=== PATIENT | male | born 1985 | race African-American/Black ===

== ENCOUNTER 2017-02-09 17:10 | Emergency (ER) | payer OTHER ==
[~2017-02-09] VITALS: Ht 175.3 cm; Wt 81.2 kg
[2017-02-09 17:27] VITALS: BP 144/84
--- NOTE | 2017-02-09 17:56 | Emergency Room Report ---
History of Present Illness General Chief Complaint: Pain Source: Patient Present Illness HPI 31-year-old male presents to the emergency department complaining of 8/10 in severity right sided groin pain x3 days. Patient denies testicular pain or swelling he denies penile discharge or external lesions he denies swollen tender lymph nodes, joint pain, fevers chills or abdominal pain. Patient states that he was drinking heavily for 3 years and does not recall if he possibly lifted anything heavy. Patient denies bruising, erythema. He reports pain as dullness does not radiate. Denies dysuria, hematuria, urinary frequency or rashes. He states he has had unprotected intercourse and wants to be covered for STD. Denies CP, Palpitations, LOC, AMS, dizziness, Changes in Vision , Sensation, paresthesias, or a sudden severe headache. Allergies: Coded Allergies: No Known Allergies (Unverified , 02/09/17) Patient History Past Medical History: see triage record Past Surgical History: none Pertinent Family History: none Reviewed Nursing Documentation: PMH: Agreed, PSxH: Agreed Nursing Documentation-PMH Past Medical History: No Stated History Review of Systems All Other Systems: negative except mentioned in HPI Physical Exam Vital Signs Date Time Temp Pulse Resp B/P (MAP) Pulse Ox O2 Delivery O2 Flow Rate FiO2 02/09/17 17:17 98.2 83 20 144/84 99 Sp02 EP Interpretation: reviewed, normal General Appearance: no apparent distress, alert, GCS 15, non-toxic Head: normocephalic, atraumatic Eyes: bilateral eye normal inspection, bilateral eye PERRL ENT: hearing grossly normal, normal voice Neck: full range of motion Respiratory: lungs clear, normal breath sounds, speaking full sentences Cardiovascular #1: regular rate, rhythm Gastrointestinal: non tender, soft Rectal: deferred Genitourinary: penis normal, scrotum normal Musculoskeletal: back normal, gait/station normal, normal range of motion, no calf tenderness, tender - TTP to the bilateral groin muscles. Neurologic: alert, oriented x3, responsive, motor strength/tone normal, sensory intact, normal gait, speech normal Skin: normal color, no rash, warm/dry, well hydrated Lymphatic: no adenopathy Medical Decision Making PA Attestation Dr. Steel is my supervising Physician whom patient management has been discussed with. Diagnostic Impression: Primary Impression: Bilateral groin pain Additional Impression: Contact with or exposure to venereal diseases ER Course 31-year-old male presents to the emergency department complaining of 8/10 in severity right sided groin pain x3 days. Patient denies testicular pain or swelling he denies penile discharge or external lesions he denies swollen tender lymph nodes, joint pain, fevers chills or abdominal pain. Patient states that he was drinking heavily for 3 years and does not recall if he possibly lifted anything heavy. Patient denies bruising, erythema. He reports pain as dullness does not radiate. Denies dysuria, hematuria, urinary frequency or rashes. He states he has had unprotected intercourse and wants to be covered for STD. Denies CP, Palpitations, LOC, AMS, dizziness, Changes in Vision , Sensation, paresthesias, or a sudden severe headache. Ddx considered but are not limited to Muscle strain, saddle injury, STI , regular torsion, epididymitis just to name a few Vital signs: are WNL, pt. is afebrile H&PE are most consistent with Muscle strain of the bilateral groin muscles. No evidence of acute infection pt sitter for examination was lead radiologic technologist Won. No penile discharge or lymphadenopathy. No evidence of testicular tenderness, swelling and cremasteric reflexes intact bilaterally. ORDERS: none required at this time, the diagnosis is clinical ED INTERVENTIONS: -Rocephin 250 mg IM. DISCHARGE: At this time pt. is stable for d/c to home. Will provide printed patient care instructions, and any necessary prescriptions. Care plan and follow up instructions have been discussed with the patient prior to discharge. Last Vital Signs Date Time Temp Pulse Resp B/P (MAP) Pulse Ox O2 Delivery O2 Flow Rate FiO2 02/09/17 17:17 98.2 83 20 144/84 99 Disposition: HOME, SELF-CARE Condition: Stable Scripts Ibuprofen* (MOTRIN*) 600 Mg Tablet 600 MG ORAL THREE TIMES A DAY, #30 TAB 0 Refills Prov: Edna Moore P.A. 02/09/17 Doxycycline Hyclate* (VIBRAMYCIN*) 100 Mg Capsule 100 MG ORAL EVERY 12 HOURS for 7 Days, #14 CAP 0 Refills Prov: Edna Moore P.A. 02/09/17 Patient Instructions: Groin Strain Additional Instructions: Take medications as directed. Follow up with a Primary Care Provider in 3-5 days, even if your symptoms have resolved. --Please review list of primary care clinics, if you do not already have a primary care provider Return sooner to ED if new symptoms occur, or current symptoms become worse. - Please note that this Emergency Department Report was dictated using [employer] field [employer] software, occasionally this can lead to erroneous entry secondary to interpretation by the dictation equipment. Edna Moore Feb 09, 2017 17:56
[2017-02-09] MEDS ORDERED: VIBRAMYCIN100 MG ORAL (17:59)
[2017-02-09] MEDS ORDERED: IBUPROFEN600 MG ORAL (17:59)
[2017-02-09] MEDS ORDERED: Lidocaine 1% MPF 10mg/ml 5ml INJ ONE (18:00)
[2017-02-09 18:20] VITALS: BP 140/80
== END 2017-02-09 18:20 | disposition home or self-care (01) ==
LOC: EMR 17:53
DX: R10.30 Lower abdominal pain, unspecified (principal); Z20.2 Contact with and (suspected) exposure to infections with a predominantly sexual mode of transmission
CPT/HCPCS: 96372; 99284; J0696

== ENCOUNTER 2019-12-08 01:10 | Emergency (ER) | payer BC, OTHER ==
[~2019-12-08] VITALS: Ht 175.3 cm; Wt 86.2 kg
[~2019-12-08 01:10] MED LIST: IBUPROFEN600 MG ORAL; VIBRAMYCIN100 MG ORAL
[2019-12-08 01:24] VITALS: BP 148/97
--- NOTE | 2019-12-08 01:24 | NUR ---
ED Nurse Note: Patient walked in from home c/o "heart racing". Patient denies any medical history. Patient aao x 4 and ambulatory with steady gait. Patient denies pain. Patient changed into gown and placed on vehicle monitor technician. No acute distress noted.
--- NOTE | 2019-12-08 01:42 | Emergency Room Report ---
History of Present Illness General Chief Complaint: Chest Pain Source: Patient Present Illness HPI This is a 34-year-old male with no past medical history. He presents with chief complaint of palpitation and dehydration. He said he has been drinking 24 hours ago. He said that he has dry mouth and felt his heart beating fast. No nausea no vomiting. No fever or chills. Denies any chest pain. Nothing made it better. Nothing made it worse. Allergies: Coded Allergies: No Known Allergies (Unverified , 02/09/17) COVID-19 Screening Contact w/high risk pt: No Experienced COVID-19 symptoms?: No COVID-19 Testing performed CAR SHAGGER: No Patient History Past Medical History: see triage record, old chart reviewed Past Surgical History: none Pertinent Family History: none Social History: Reports: alcohol use Immunizations: other Reviewed Nursing Documentation: PMH: Agreed; PSxH: Agreed Nursing Documentation-PMH Past Medical History: No Stated History Review of Systems Eye: Denies: eye pain, blurred vision ENT: Denies: ear pain, nose congestion, throat swelling Respiratory: Denies: cough, shortness of breath Cardiovascular: Reports: palpitations; Denies: chest pain Gastrointestinal: Denies: abdominal pain, diarrhea, nausea, vomiting Musculoskeletal: Denies: back pain, joint pain Skin: Denies: rash Neurological: Denies: headache, numbness Endocrine: Denies: increased thirst, increased urine Hematologic/Lymphatic: Denies: easy bruising All Other Systems: negative except mentioned in HPI Physical Exam Vital Signs Date Time Temp Pulse Resp B/P (MAP) Pulse Ox O2 Delivery O2 Flow Rate FiO2 12/08/19 01:18 97.9 99 18 154/108 (123) 97 Room Air Vitals with high blood pressure Sp02 EP Interpretation: reviewed, normal General Appearance: well appearing, no apparent distress, alert Head: normocephalic, atraumatic Eyes: bilateral eye PERRL, bilateral eye EOMI ENT: hearing grossly normal, normal pharynx Neck: full range of motion, supple, no meningismus Respiratory: chest non-tender, lungs clear, normal breath sounds Cardiovascular #1: regular rate, rhythm, no murmur Gastrointestinal: normal bowel sounds, non tender, no mass, no organomegaly, no bruit, non-distended Musculoskeletal: back normal, normal range of motion, gait/station normal Psychiatric: mood/affect normal Medical Decision Making Diagnostic Impression: Primary Impression: Palpitations Additional Impression: JOSE ALFREDO (acute kidney injury) ER Course Patient presents with palpitation. Heart rate is in the 80s here. His creatinine is elevated. He is tolerating p.o. [place] better after IV fluid. Will discharge home. EKG Diagnostic Results Troponin ordered: Yes Rate: normal Rhythm: NSR ST Segments: no acute changes Rhythm Strip Diag. Results EP Interpretation: yes Rate: 75 Rhythm: NSR, no PVC's, no ectopy Last Vital Signs Date Time Temp Pulse Resp B/P (MAP) Pulse Ox O2 Delivery O2 Flow Rate FiO2 12/08/19 01:24 95 18 Room Air 12/08/19 01:24 97.9 148/97 99 Status: improved Disposition: HOME, SELF-CARE Condition: Stable Additional Instructions: Increase fluids. Abstain from alcohol. Follow-up with your doctor in 7 days. Return if worse. Javi Moran MD Dec 08, 2019 01:42
[2019-12-08 01:50] LABS: BASOPHILS % (AUTO) 1.1 % (0.0-2.0); HEMATOCRIT 53.3 % (42.0-52.0); HEMOGLOBIN 17.9 G/DL (14.2-18.0); MEAN CORPUSCULAR VOLUME 89 FL (80-99); MONOCYTES % (AUTO) 5.2 % (1.0-10.0); NEUTROPHILS % (AUTO) 80.7 % (45.0-75.0); PLATELET COUNT 226 K/UL (150-450); RED BLOOD COUNT 5.96 M/UL (4.70-6.10); WHITE BLOOD COUNT 9.5 K/UL (4.8-10.8)
[2019-12-08 02:00] LABS: CALCIUM 9.7 MG/DL (8.5-10.1); CREATININE 1.6 MG/DL (0.55-1.30)
[2019-12-08 02:55] VITALS: BP 144/79
--- NOTE | 2019-12-08 02:55 | NUR ---
ER DISCHARGE NOTE: Patient is cleared to be discharged per ERMD, pt is aox4, on room air, with stable vital signs. pt was given dc instructions, pt was able to verbalize understanding, pt id band and iv site removed intact without complications. pt is able to ambulate with steady gait. pt took all belongings. pt stable upon discharge.
--- NOTE | 2019-12-26 17:13 | Cardiology Report ---
APPROVED REPORT EKG Measurement Heart [id number] <Conclusion> Normal sinus rhythm Septal infarct, age undetermined Abnormal ECG
== END 2019-12-08 02:55 | disposition home or self-care (01) ==
LOC: EMR 01:40
DX: R00.2 Palpitations (principal); N17.9 Acute kidney failure, unspecified; E86.0 Dehydration
CPT/HCPCS: 36415; 80048; 84484; 85025; 93005; 96360; 99284; J7030